=== PATIENT | male | born 1990 | race Caucasian/White ===

== ENCOUNTER 2020-04-09 19:28 | Inpatient (IN) | payer OTHER, SELFPAY ==
[2020-04-09 20:29] LABS: #Lymphocytes 1.6 thou/uL (1.20-3.40); #Monocytes 0.5 thou/uL (0.11-0.59); #Neutrophils 3.6 thou/uL (1.40-6.50); %Basophils 0.4 % (0.0-1.0); %Eosinophils 0.2 % (0.0-10.0); %Monocytes 9.2 % (0.0-10.0); %Neutrophils 63.1 % (42.0-75.0); Hemoglobin 16.2 g/dL (14.0-18.0); Mean Corpuscular HGB CONC 35.9 g/dL (32.0-36.0); Mean Corpuscular Hemoglobin 31.3 pg (27.0-31.0); Mean Corpuscular Volume 87.3 fL (78.0-98.0); Mean Platelet Volume 7.2 fL (7.4-10.4); Platelet Count 107 thou/uL (130-400); RBC Distribution Width 12.3 % (11.5-14.5); Red Blood Cell (RBC) Count 5.17 mill/uL (4.70-6.10); White Blood Cell (WBC) Count 5.7 thou/uL (4.8-10.8)
[2020-04-09 20:43] LABS: Platelet Morphology Comment Appears Decreased; RBC Morphology Normal
[2020-04-09] MEDS ORDERED: Lorazepam 2 MG/ML VIAL ONE (20:48)
[2020-04-09 20:53] LABS: ALT (SGPT) 43 U/L (8-55); AST (SGOT) 114 U/L (5-34); Albumin 4.3 g/dL (3.5-5.0); Alkaline Phosphatase 91 U/L (40-110); Anion Gap 15 mmol/L (10-20); BUN (Urea Nitrogen) 5 mg/dL (8.9-20.6); Bilirubin, Total 1.1 mg/dL (0.2-1.2); Calc. Creatinine Clearance 0 mL/min (70-130); Calcium 8.3 mg/dL (7.8-10.44); Carbon Dioxide 27 mmol/L (22-29); Chloride 97 mmol/L (98-107); Estimated GFR-MDRD 84; Glucose 124 mg/dL (70-105); Potassium 3.3 mmol/L (3.5-5.1); Protein, Total 7.3 g/dL (6.0-8.3); Sodium 136 mmol/L (136-145)
[2020-04-09 22:23] VITALS: BMI 24.2
[2020-04-09] MEDS ORDERED: Mag-Al 1200 mg/1200 mg/30 ML UDCUP PO PRN (22:51)
[2020-04-09] MEDS ORDERED: Diazepam 5 MG TAB PO PRN (23:03)
[2020-04-09] MEDS ORDERED: Diazepam 5 MG TAB PO SCH (23:15)
[2020-04-09] MEDS ORDERED: Thiamine HCl 200 MG/2 ML VIAL IM SCH (23:30)
--- NOTE | 2020-04-10 01:19 | HP ---
TIME OF ASSESSMENT: 2299 CHIEF COMPLAINT: Recent binge drinking and worry for alcohol withdrawal seizure. HISTORY OF PRESENT ILLNESS: Mr. Trejo is a 30-year-old gentleman, with a history of heavy alcohol abuse, who states he began drinking after losing his job in November due to closures associated with COVID-19. The patient states he began drinking liquor quite heavily and would often binge drink and on one occasion after decreasing the amount of alcohol he was drinking, he experienced a seizure. He states this was the first time it ever happened. He stopped drinking for approximately one month, but is unsure how long ago exactly. He has started drinking more in the last 2 to 3 weeks. He states he has tried to stay away from liquor, mainly drinking beer or sometimes wine. More recently, he started drinking liquor again. Yesterday, he had a bottle of wine. Today, he last drank before 2:00 p.m. and reports having a beer and a couple of mixed drinks (Red Bull with vodka). Patient states he is concerned about recent decline in the amount of alcohol he has been drinking with occasional binge drinking in the last week. He feels this may lead to him experiencing another seizure associated with alcohol withdrawal. He denies any tremors or shaking. Reports having hiccups this evening and denies any vomiting. Reports having issues with reflux. Has not had any hematemesis. No abdominal pain. EMERGENCY DEPARTMENT COURSE: In the emergency department, he had laboratory studies done showing a white count of 5.7, hemoglobin 16.2, platelets 107, and neutrophils 63.1%. CMP notable for potassium 3.3. His BUN was 5, creatinine 1.05, GFR 84. Glucose 124. AST 114. Otherwise, LFTs unremarkable. EKG done in the emergency department was notable for sinus tachycardia with a heart rate of 117. He was given 1 L of normal saline and 2 mg of Ativan in the emergency department. Patient states he is currently feeling much better and less anxious than he did when he first came in. He states he feels as if he could actually get rest. PAST MEDICAL HISTORY: History of alcohol withdrawal seizure. PAST SURGICAL HISTORY: None. FAMILY HISTORY: Noncontributory. SOCIAL HISTORY: Patient lives alone. Denies any tobacco use or illicit drug use. Alcohol, excess as mentioned above. Patient states there is no specific amount or type of alcohol he drinks and states that his consumption tends to fluctuate greatly from day-to-day with several days of reported binge drinking in the last 2 to 3 weeks. ALLERGIES: NO KNOWN DRUG ALLERGIES. CURRENT MEDICATIONS: Omeprazole. PHYSICAL EXAMINATION: GENERAL: Patient appears well developed, resting comfortably in bed and in no acute distress. VITAL SIGNS: . HEENT: Normocephalic and atraumatic. Pupils are equal, round, and reactive to light. Sclerae icterus. Oropharynx is clear. NECK: Supple. LUNGS: Clear to auscultation bilaterally without any wheezes, rales, or rhonchi. CARDIAC: Regular rate and rhythm. ABDOMEN: Soft, nontender, and nondistended. Normoactive bowel sounds present. No guarding or rigidity. No renal angle tenderness. EXTREMITIES: No lower leg swelling or edema. NEUROLOGIC: Alert and oriented x3. SKIN: Warm and dry. INVESTIGATIONS: As mentioned above in HPI. IMPRESSION AND PLAN: Mr. Trejo is a 30-year-old gentleman, with a history of heavy alcohol consumption who drank excessively in the past with frequent binge drinking and episode of alcohol withdrawal-induced seizure after stopping alcohol abruptly. The patient states he does not drink nearly as much as he used to, but being that his alcohol consumption has started to increase gradually again, he is worried now that he has stopped drinking today, he will experience another seizure. Patient states he was very anxious and worried about it and that is the reason why he decided to come into the emergency department in order to be monitored for possibility of recurrent seizure. He has not experienced any tremors or sweats. He is no longer tachycardic. He did receive fluids in the emergency department as well as Ativan. We will continue cardiac monitoring given tachycardia. Patient was found resting comfortably. His potassium was low in the emergency department and we will replace and check magnesium as well. He does have reflux, for which he takes omeprazole. We will resume PPI. Patient has a full code status. Case was discussed with attending, who agrees with the plan of care as described above. Job ID: [id number]
[2020-04-10 06:28] LABS: Amphetamine Not Detected (NotDetected); Benzodiazepine Screen Detected (NotDetected); Cocaine Metabolite Screen Not Detected (NotDetected); Medtox Reader # READER 4; Methamphetamine Not Detected (NotDetected); Opiate Screen Not Detected (NotDetected); Phencyclidine (PCP) Not Detected (NotDetected); THC/Cannabinoid Screen Not Detected (NotDetected)
[2020-04-10 06:29] LABS: Barbiturates Screen Not Detected (NotDetected); Medtox Control Line Valid? VALID (VALID); Methadone Not Detected (NotDetected); Oxycodone Screen Not Detected (NotDetected); Tricyclic Screen Not Detected (NotDetected)
[2020-04-10] MEDS: Folic Acid 1 MG TAB PO SCH (07:47)
[2020-04-10] MEDS: Multivitamin W/ Minerals 1 TAB PO SCH (07:47)
[2020-04-10] MEDS: Magnesium Oxide 400 MG TAB PO SCH (07:48)
[2020-04-10] MEDS: Thiamine 100 MG TAB PO SCH (07:48)
[2020-04-10] MEDS: Diazepam 5 MG TAB PO PRN ×4 (07:49→20:28)
[2020-04-10] MEDS: Lorazepam 1 MG TAB PO PRN (10:00)
[2020-04-10 12:00] LABS: SARS-CoV-2 MS2 Positive; SARS-CoV-2 N Gene Positive; SARS-CoV-2 S Gene Positive; SARS-CoV-2 by NAA DETECTED (NotDetected); SARS-CoV-2 orf1ab Positive
[2020-04-10] MEDS: Multivitamins, Adult 10 ML, Folic Acid 1 MG, Thiamine HCl 100 MG in Dextrose 5 %-0.45 %... IV SCH (13:24)
--- NOTE | 2020-04-10 13:36 | PDOC.HOSPP ---
- Subjective Encounter Date: 04/10/20 Encounter Time: 09:00 Subjective: is shaking and very anxious says his family is trying to get him to a rehab he has been having issues with alchol abuse from last 3 yrs - Objective Vital Signs & Weight: Vital Signs (12 hours) Temp Pulse Resp BP BP Pulse Ox 04/10/20 11:24 98.9 F 106 H 20 185/101 H 185/101 H 99 04/10/20 07:44 158/101 H 04/10/20 07:38 98.9 F 106 H 24 H 158/101 H 98 Weight Weight 173 lb 9.6 oz I&O: 04/09/20 04/10/20 04/11/20 06:59 06:59 06:59 Intake Total 240 Balance 240 Result Diagrams: 04/09/20 20:09 04/09/20 20:09 Hospitalist ROS - Medication Medications: Active Medications Generic Name Dose Route Start Last Admin Trade Name Freq PRN Reason Stop Dose Admin Diazepam 5 mg 04/10/20 04:00 04/10/20 11:30 Valium PO 5 mg Q4H PRN Administration FOR ASE 10 OR GREATER Folic Acid 1 mg 04/10/20 09:00 04/10/20 07:47 Folvite PO 1 mg DAILY LISET Administration Multivitamins 10 ml/ Folic 1,011.2 mls @ 70 mls/hr 04/10/20 12:24 04/10/20 13 :24 Acid 1 mg/ Thiamine HCl 100 mg IV 1,011.2 mls / Dextrose/Sodium Chloride Q24HR LISET Administration Iron/Minerals/Multivitamins 1 tab 04/10/20 09:00 04/10/20 07:47 Theragran M PO 1 tab DAILY LISET Administration Lorazepam 2 mg 04/10/20 00:25 04/10/20 10:00 Ativan PO 2 mg Q4H PRN Administration Anxiety/Agitation Magnesium Oxide 400 mg 04/10/20 09:00 04/10/20 07:48 Magnesium Oxide PO 400 mg DAILY LISET Administration Thiamine HCl 100 mg 04/10/20 09:00 04/10/20 07:48 Thiamine PO 100 mg DAILY LISET Administration - Exam General Appearance: awake alert Eye: anicteric sclera ENT: no oropharyngeal lesions, dry oral mucosa Neck: supple, no JVD Heart: RRR, no murmur Respiratory: no wheezes, no rales Gastrointestinal: soft, non-tender, non-distended, normal bowel sounds Extremities: no cyanosis, no edema Neurological: cranial nerve grossly intact, no focal deficits Hosp A/P (1) Alcohol abuse Code(s): F10.10 - ALCOHOL ABUSE, UNCOMPLICATED Status: Acute (2) Alcohol withdrawal Code(s): F10.239 - ALCOHOL DEPENDENCE WITH WITHDRAWAL, UNSPECIFIED Status: Acute - Plan is on ASE protocol banana bag I have reassured him we will watch him closely hemostable will need 2 more days to settle down with withdrawal symptoms tx to medical floor
[2020-04-11] MEDS: Lorazepam 1 MG TAB PO PRN (00:02)
[2020-04-11] MEDS ORDERED: Morphine 2 MG/ML VIAL SLOW IVP SCH (00:30)
[2020-04-11] MEDS ORDERED: Lidocaine 2% Viscous Solution 10 ML, Aluminum & Magnesium Hydroxide 30 ML SSW SCH (00:30)
[2020-04-11 00:44] LABS: #Basophils 0.1 thou/uL (0.0-0.2); #Lymphocytes 1.9 thou/uL (1.20-3.40); #Monocytes 0.7 thou/uL (0.11-0.59); #Neutrophils 9.7 thou/uL (1.40-6.50); %Basophils 0.5 % (0.0-1.0); %Eosinophils 0.2 % (0.0-10.0); %Lymphocytes 15.6 % (21.0-51.0); %Monocytes 5.4 % (0.0-10.0); %Neutrophils 78.2 % (42.0-75.0); Hemoglobin 16.3 g/dL (14.0-18.0); Mean Corpuscular HGB CONC 34.1 g/dL (32.0-36.0); Mean Corpuscular Hemoglobin 30.2 pg (27.0-31.0); Mean Corpuscular Volume 88.5 fL (78.0-98.0); Mean Platelet Volume 7.8 fL (7.4-10.4); Platelet Count 101 thou/uL (130-400); RBC Distribution Width 12.1 % (11.5-14.5); White Blood Cell (WBC) Count 12.4 thou/uL (4.8-10.8)
--- NOTE | 2020-04-11 00:55 | PDOC.EVN ---
Event Note - Event Note Event Note: Patient with semi-soft stools x 2 today with abdominal cramping.Feels he is not tolerating food well. States its happened in the past while he was in the hospital. Denies any vomiting. Has not had any distention. No passing excess flatus. No melena or bright red blood per rectum. Denies any fevers. He has been sweating profusely and was doubled over in pain but now it has eased. Requesting peptobismol. He declined examination, states he prefers to be left alone while he is attempting to use the bathroom. Feels like he needs to have a bowel movement. Will give GI cocktail and Levsin. If starts to have watery stools will need stool studies. ADDENDUM: Labs obtained demonstrate elevated lipase 7k, and bili 2.2. Lactic acid 2.3 We started IV fluids. RUQ ultrasound ordered. K+ replacement ordered. Regular diet discontinued, will keep NPO until imaging done.
[2020-04-11 00:58] LABS: Lactic Acid 2.3 mmol/L (0.5-2.2)
[2020-04-11] MEDS ORDERED: Pantoprazole 40 MG VIAL IVP SCH (01:00)
[2020-04-11] MEDS ORDERED: Famotidine 20 MG TAB PO SCH (01:00)
[2020-04-11 01:09] LABS: ALT (SGPT) 39 U/L (8-55); AST (SGOT) 95 U/L (5-34); Albumin 4.7 g/dL (3.5-5.0); Alkaline Phosphatase 102 U/L (40-110); Anion Gap 17 mmol/L (10-20); BUN (Urea Nitrogen) 5 mg/dL (8.9-20.6); Bilirubin, Total 2.2 mg/dL (0.2-1.2); Calc. Creatinine Clearance 122 mL/min (70-130); Calcium 9.6 mg/dL (7.8-10.44); Carbon Dioxide 24 mmol/L (22-29); Chloride 93 mmol/L (98-107); Estimated GFR-MDRD 89; Globulin 3.2 g/dL (2.4-3.5); Glucose 192 mg/dL (70-105); Protein, Total 7.9 g/dL (6.0-8.3); Sodium 131 mmol/L (136-145)
[2020-04-11 01:17] LABS: Lipase 7061 U/L (8-78)
[2020-04-11] MEDS: Diazepam 5 MG TAB PO PRN (01:20)
[2020-04-11] MEDS ORDERED: Sodium Chloride 0.9% 1,000 ML IV SCH ×2 (01:45→07:48)
[2020-04-11] MEDS ORDERED: Potassium Chloride 20 MEQ TAB PO SCH (01:45)
[2020-04-11] MEDS ORDERED: Electrolyte Replacement Protocol FS SCH (01:45)
--- NOTE | 2020-04-11 07:36 | ULT ---
PRELIMINARY REPORT/[facility]/EMERGENCY AFTER HOURS PROCEDURE: EXAM: US Abdomen Limited, Right Upper Quadrant. CLINICAL HISTORY: Abd cramping pain TECHNIQUE: Real-time ultrasound of the right upper quadrant with image documentation. COMPARISON: None provided. FINDINGS: LIVER: Appears enlarged at 18.1 cm and demonstrates fatty infiltration. GALLBLADDER: No gallstone. No wall thickening. No pericholecystic fluid. Appears distended COMMON BILE DUCT: No dilation. Measures 4.6 mm PANCREAS: Obscured by overlying bowel gas. RIGHT KIDNEY: Unremarkable. No hydronephrosis. Measures 10.0 cm IMPRESSION: Enlarged fatty infiltrated liver ELECTRONICALLY SIGNED BY: Wilmer Reyes MD Apr 11, 2020 3:24:50 AM CDT This report is intended for review by the ordering physician only, in accordance of law. If you recei ve this report in error, please call [facility] at [phone]. FINAL REPORT EMERGENCY AFTER HOURS RIGHT UPPER QUADRANT ABDOMINAL ULTRASOUND: FINDINGS/IMPRESSION: I agree with the findings and impression given in the preliminary report per [facility] vinny hernández Fatty liver. POS: KARAN
[2020-04-11] MEDS: Magnesium Oxide 400 MG TAB PO SCH (09:13)
[2020-04-11] MEDS: Multivitamin W/ Minerals 1 TAB PO SCH (09:13)
[2020-04-11] MEDS: Thiamine 100 MG TAB PO SCH (09:13)
[2020-04-11] MEDS: Famotidine 20 MG TAB PO SCH ×2 (09:13→20:55)
[2020-04-11] MEDS: Folic Acid 1 MG TAB PO SCH (09:14)
[2020-04-11] MEDS ORDERED: Iopamidol-370 76% 500 ML 1 ML ONE (11:13)
--- NOTE | 2020-04-11 11:55 | CT ---
CT abdomen and pelvis with IV and oral contrast HISTORY: Abdominal pain. Pancreatitis. FINDINGS: Lung bases are clear. Liver is diffusely hypodense. Subtle stranding within the fat around the pancreas, most pronounced at the pancreatic head. Small am ount of adjacent fluid, extending into the right paracolic gutter in the dependent portion of the pelvis. There is subtle circumferential wall thickening involving the hepatic flexure of the colon. Appendix not well visualized. Possibly surgically absent? Other solid organs of the abdomen are within normal limits. Urinary bladder decompressed. Mild forestry aid ior disc bulge at the lumbosacral junction. IMPRESSION : CT findings of non-complicated pancreatitis. Secondary inflammation of the hepatic flexure of the col on.
--- NOTE | 2020-04-11 12:55 | PDOC.HOSPP ---
- Subjective Encounter Date: 04/11/20 Encounter Time: 08:45 Subjective: no nausea or abd pain this am feels better, had abd pain and nausea last evening - Objective Vital Signs & Weight: Vital Signs (12 hours) Temp Pulse Resp BP BP Pulse Ox 04/11/20 09:20 97.8 F 103 H 20 131/78 98 04/11/20 05:00 98.7 F 92 18 138/77 138/77 98 Weight Weight 173 lb 9.6 oz I&O: 04/10/20 04/11/20 04/12/20 06:59 06:59 06:59 Intake Total 240 1750 Balance 240 1750 Result Diagrams: 04/11/20 00:34 04/11/20 00:34 Hospitalist ROS - Medication Medications: Active Medications Generic Name Dose Route Start Last Admin Trade Name Freq PRN Reason Stop Dose Admin Al Hydroxide/Mg Hydroxide 30 ml 04/09/20 22:51 04/10/20 20:37 Maalox PO 30 ml Q6H PRN Administration Dyspepsia Diazepam 5 mg 04/10/20 04:00 04/11/20 01:20 Valium PO 5 mg Q4H PRN Administration FOR ASE 10 OR GREATER Famotidine 20 mg 04/11/20 09:00 04/11/20 09:13 Pepcid PO 20 mg BID LISET Administration Folic Acid 1 mg 04/10/20 09:00 04/11/20 09:14 Folvite PO 1 mg DAILY LISET Administration Multivitamins 10 ml/ Folic 1,011.2 mls @ 70 mls/hr 04/10/20 12:24 04/10/20 13 :24 Acid 1 mg/ Thiamine HCl 100 mg IV 1,011.2 mls / Dextrose/Sodium Chloride Q24HR LISET Administration Iron/Minerals/Multivitamins 1 tab 04/10/20 09:00 04/11/20 09:13 Theragran M PO 1 tab DAILY LISET Administration Lorazepam 2 mg 04/10/20 00:25 04/11/20 00:02 Ativan PO 2 mg Q4H PRN Administration Anxiety/Agitation Magnesium Oxide 400 mg 04/10/20 09:00 04/11/20 09:13 Magnesium Oxide PO 400 mg DAILY LISET Administration Thiamine HCl 100 mg 04/10/20 09:00 04/11/20 09:13 Thiamine PO 100 mg DAILY LISET Administration - Exam General Appearance: awake alert Eye: PERRL, anicteric sclera ENT: no oropharyngeal lesions, dry oral mucosa Neck: supple, no JVD Heart: RRR, no murmur Respiratory: no wheezes, no rales Gastrointestinal: soft, non-distended, normal bowel sounds, no guarding, no rigidity Extremities: no cyanosis, no edema Neurological: cranial nerve grossly intact, no focal deficits Psychiatric: normal affect, A&O x 3 Hosp A/P (1) Acute pancreatitis Code(s): K85.90 - ACUTE PANCREATITIS WITHOUT NECROSIS OR INFECTION, UNSP Status: Acute Qualifiers: Pancreatitis type: alcohol induced (2) Alcohol abuse Code(s): F10.10 - ALCOHOL ABUSE, UNCOMPLICATED Status: Acute (3) Alcohol withdrawal Code(s): F10.239 - ALCOHOL DEPENDENCE WITH WITHDRAWAL, UNSPECIFIED Status: Acute (4) COVID-19 virus infection Code(s): U07.1 - COVID-19 Status: Acute - Plan is on ASE protocol generous iv fluids with pancreatitis hemostable withdrawal symptoms are better this am with no chills/shaking or anxiety issues. to ambulate in room has covid 19+ve, no sob and is not on oxygen
--- NOTE | 2020-04-11 13:19 | CON ---
DATE OF CONSULTATION: 04/11/2020 REQUESTING PHYSICIAN: Wilian Nair MD REASON FOR CONSULTATION: Pancreatitis and alcohol abuse. HISTORY OF PRESENT ILLNESS: Da Trejo is a 30-year-old man, who was admitted to the hospital a couple of nights ago. He has no chronic gastrointestinal symptoms. He has no prior history of pancreatic, liver, or biliary disease. He reports he has used alcohol quite heavily for few years and especially over the past several months. He presented to the emergency department a couple of nights ago with feelings of anxiety and shakiness with concern that he might have a withdrawal seizure. He has had a prior episode of alcohol withdrawal seizure. He was admitted for alcohol withdrawal monitoring and management. Upon presentation, he was not having any abdominal pain. He had a few episodes of vomiting, which he was attributing to withdrawal symptoms. However, yesterday evening, he started having severe cramping pain. He describes this was in the mid to lower abdomen. It was associated with feeling of constipation and needing to evacuate his bowels. Some labs were checked and lipase came back at 7061, so he had a CT scan of the abdomen and pelvis earlier today and this does show peripancreatic stranding without any complications. Some reactive thickening at the hepatic flexure. The patient actually states this morning he is doing very well, that cramping abdominal pain has resolved. He is no longer having any nausea or vomiting. He has been n.p.o. today. IV fluids were ordered for 200 mL/h, but once the current bag ran out, the patient disconnected the IV. I do note that his hematocrit went up slightly from 45 to 47 over his first day of hospitalization. Also notably his COVID PCR is positive, but he is not experiencing any symptoms of shortness of breath, cough, or fever. PAST MEDICAL HISTORY: Alcohol abuse, alcohol withdrawal seizure. ALLERGIES: NO KNOWN DRUG ALLERGIES. MEDICATIONS: Outpatient medications: Omeprazole. Inpatient medications: 1. Pepcid 20 mg b.i.d. 2. Folic acid 1 mg daily. 3. Ativan p.r.n. 4. Magnesium oxide 400 mg p.o. daily. 5. Multivitamin with minerals. 6. Thiamine. 7. Morphine p.r.n. was given last night. 8. IV normal saline 200 mL/h. FAMILY HISTORY: Noncontributory. SOCIAL HISTORY: No tobacco or drug abuse noted, though urine was positive for benzodiazepines. He admits to alcohol abuse. PHYSICAL EXAMINATION: VITAL SIGNS: Temperature 98.7, pulse 103, blood pressure 131/78, oxygen saturation 98% on room air. GENERAL: A 30-year-old man, lying in bed comfortably, in no distress. MENTAL: Alert and fully oriented. Pleasant, conversational. SKIN: No jaundice. No rashes were palpable. EYES: No scleral icterus. Extraocular movements intact. ENT: Mucous membranes moist. No oral lesions. LYMPH: No submandibular or supraclavicular lymphadenopathy. THYROID: Nontender to palpation. HEART: Regular rate and rhythm. LUNGS: Clear to auscultation bilaterally. ABDOMEN: Mild distention, tympanitic to percussion. Soft, nontender to palpation. Bowel sounds are hypoactive, but present. EXTREMITIES: No peripheral edema. VESSELS: Radial pulses 2+ bilaterally. NEURO: Cranial nerves II through XII intact bilaterally. No focal deficits. LABORATORY STUDIES: Lipase elevated to 7061. Total bilirubin initially 1.1, up to 2.2 now, alkaline phosphatase 102, AST 95, ALT 39, albumin 4.7, BUN 5, creatinine 1.00, sodium 131, and potassium 3.0. COVID PCR positive. Lactic acid 2.3. Urine positive for benzodiazepines. WBC initially 5.7, but went up to 12.4; hemoglobin initially 16.2, now 16.3; hematocrit initially 45, now 47; and platelets 101. IMAGING STUDIES: CT of the abdomen and pelvis demonstrates peripancreatic stranding with no evidence of complication. There is some reactive thickening at the hepatic flexure. Abdominal ultrasound shows fatty liver, normal-appearing gallbladder with no gallbladder wall thickening or pericholecystic fluid or gallstones. Common bile duct is normal at 4.6 mm. ASSESSMENT AND PLAN: 1. Acute alcoholic pancreatitis. 2. Alcohol withdrawal. This appears to be the patient's first episode of pancreatitis. On the positive side, his symptoms have much improved this morning and he is not endorsing any further abdominal pain or nausea. On the other hand, over the first 24 hours of admission, his hematocrit went up from 45 to 47, and he also developed leukocytosis. I emphasized the importance of aggressive IV fluid administration to the patient. I would agree with 200 mL/h and advised the patient not to disconnect the line. I would advise continued n.p.o. status for the remainder of the day. Continue with other supportive care as needed, though again the patient seems to be doing better from a symptomatic perspective. If he is continuing to do well tomorrow and laboratory studies are favorable and he is hungry, could possibly try to advance to clear liquids tomorrow morning. In the longer term, I advised the patient he needs to completely avoid all alcohol going forward. 3. COVID PCR positive. The patient does not really have classic symptoms of COVID. Infectious Disease has been consulted. The patient remains on COVID precautions. GI will follow along. Thank you for the consultation. Job ID: [id number]
[2020-04-11] MEDS: Sodium Chloride 0.9% 1,000 ML IV SCH ×3 (13:20→21:29)
[2020-04-11] MEDS: Multivitamins, Adult 10 ML, Folic Acid 1 MG, Thiamine HCl 100 MG in Dextrose 5 %-0.45 %... IV SCH (13:41)
--- NOTE | 2020-04-11 17:52 | CON ---
DATE OF CONSULTATION: 04/11/2020 REASON FOR CONSULTATION: Pancreatitis associated with positive COVID serology. HISTORY OF PRESENT ILLNESS: A 30-year-old with history of alcoholism, who came in with some nausea and what he describes as abdominal cramps, but he does not qualify the symptom as pain. The main reason that he came to the hospital is because he was wanting to quit drinking and he was afraid that he was going to have recurrence of seizures, so he came in. He was admitted and tested positive for COVID in the process and he had a very higher level of lipase with CT scan findings consistent with uncomplicated pancreatitis. Right now, he is having what he describes as abdominal cramps, those are localized throughout the abdomen, probably related to the enzymatic release from the pancreas. Denies any headaches. No visual symptoms, sore throat, odynophagia, or dysphagia. No chest pain. No diarrhea. No genitourinary symptoms. Does not have any cough again. No dyspnea. PAST MEDICAL HISTORY: 1. Alcoholism. 2. Seizures, which were associated with binge drinking. 3. Prior DTs. 4. Never smoker. ALLERGIES: NONE. MEDICATION LIST: 1. Lorazepam. 2. Diazepam. 3. Magnesium oxide. 4. Electrolyte replacement. 5. Multivitamins. 6. Thiamine. FAMILY HISTORY: Noncontributory. PHYSICAL EXAMINATION: VITAL SIGNS: He has been afebrile, BP 118/63, pulse 82, respirations 16, and O2 saturation 97. SKIN: Normal. No lymphadenopathy. HEENT: Ocular movements conjugate. Sclerae white. Pupils are equal. Oral cavity normal. LUNGS: Symmetric, clear breath sounds. HEART: S1 and S2. Regular rate. No S3 or S4. ABDOMEN: Somewhat taut with moderate distention and diffuse tenderness, which is mild. No bladder distention. GENITAL: No genital abnormalities. EXTREMITIES: No joint inflammatory activity. No edema. Pulses 1+ in dorsalis pedis. Moves extremities equally. NEUROLOGIC: He is awake, oriented, little jittery during the examination and kind of shaking. LABORATORY DATA: His white cell count 5.7 and 12.4, hemoglobin 16, platelets 101,000, and 78% neutrophils. Sodium 131, creatinine 1.0, glucose 192, bilirubin 2.2, AST 95, and lipase 7000. COVID serology positive. His abdomen and pelvis CT with CT findings an uncomplicated pancreatitis, secondary inflammation of hepatic flexure of the colon. The lungs did not show any abnormalities. ASSESSMENT: 1. Pancreatitis due to alcoholism. 2. Delirium tremens. 3. COVID positive serology. DISCUSSION: He does not have respiratory symptoms and the segment of lungs that were imaged by the CT did not have any evidence of infiltrates. This seems to be a mild COVID infection. His main issue is the alcohol withdrawal symptoms, risk of seizures, and pancreatitis. He is not eligible or requires any treatment for the COVID infection at the moment. He is around the 7th day of illness more or less. He seems to have acquired the infection in [place] when he was around a lot of people who were not wearing masks in the common area of the [facility]. Job ID: [id number]
[2020-04-12] MEDS: Lorazepam 1 MG TAB PO PRN (00:25)
[2020-04-12] MEDS: Sodium Chloride 0.9% 1,000 ML IV SCH ×5 (03:30→23:50)
[2020-04-12 07:30] LABS: ALT (SGPT) 21 U/L (8-55); AST (SGOT) 46 U/L (5-34); Albumin 3.7 g/dL (3.5-5.0); Alkaline Phosphatase 85 U/L (40-110); Anion Gap 13 mmol/L (10-20); BUN (Urea Nitrogen) Less than 4 mg/dL (8.9-20.6); Bilirubin, Total 1.6 mg/dL (0.2-1.2); Calc. Creatinine Clearance 163 mL/min (70-130); Calcium 8.8 mg/dL (7.8-10.44); Carbon Dioxide 24 mmol/L (22-29); Chloride 99 mmol/L (98-107); Estimated GFR-MDRD Greater than 90; Globulin 2.9 g/dL (2.4-3.5); Glucose 95 mg/dL (70-105); Potassium 3.4 mmol/L (3.5-5.1); Protein, Total 6.6 g/dL (6.0-8.3); Sodium 133 mmol/L (136-145)
[2020-04-12 07:44] LABS: Lipase 1186 U/L (8-78)
[2020-04-12 07:54] LABS: #Basophils 0.1 thou/uL (0.0-0.2); #Lymphocytes 0.9 thou/uL (1.20-3.40); #Monocytes 0.5 thou/uL (0.11-0.59); #Neutrophils 7.9 thou/uL (1.40-6.50); %Basophils 0.8 % (0.0-1.0); %Eosinophils 0.3 % (0.0-10.0); %Lymphocytes 9.5 % (21.0-51.0); %Neutrophils 84.4 % (42.0-75.0); Hemoglobin 13.4 g/dL (14.0-18.0); Mean Corpuscular HGB CONC 33.9 g/dL (32.0-36.0); Mean Corpuscular Hemoglobin 30.3 pg (27.0-31.0); Mean Corpuscular Volume 89.3 fL (78.0-98.0); Mean Platelet Volume 8.3 fL (7.4-10.4); Platelet Count 56 thou/uL (130-400); Platelet Morphology Comment Appears Decreased; RBC Distribution Width 11.9 % (11.5-14.5); RBC Morphology Normal; Red Blood Cell (RBC) Count 4.42 mill/uL (4.70-6.10); White Blood Cell (WBC) Count 9.4 thou/uL (4.8-10.8)
[2020-04-12] MEDS: Famotidine 20 MG TAB PO SCH ×2 (08:09→21:44)
[2020-04-12] MEDS: Multivitamin W/ Minerals 1 TAB PO SCH (08:09)
[2020-04-12] MEDS: Thiamine 100 MG TAB PO SCH (08:09)
[2020-04-12] MEDS: Folic Acid 1 MG TAB PO SCH (08:09)
[2020-04-12] MEDS: Magnesium Oxide 400 MG TAB PO SCH (08:09)
--- NOTE | 2020-04-12 10:26 | PRG ---
DATE OF SERVICE: 04/12/2020 SUBJECTIVE: The patient is feeling pretty good today. He has not had recurrence of abdominal discomfort. He is not having any nausea or vomiting. His appetite has returned. He has been slightly tachycardic, spiked a mild temperature to 99.7 early this morning. OBJECTIVE: VITAL SIGNS: Temperature 99.4, pulse 115, blood pressure 150/96, and 99% oxygen saturation on room air. GENERAL: No acute distress, lying in bed comfortably. HEART: Regular. Tachycardia. LUNGS: Clear to auscultation bilaterally. ABDOMEN: Flat. Bowel sounds are present. Soft, nontender to palpation. EXTREMITIES: No peripheral edema. LABORATORY STUDIES: All improved with WBC 9.4, hemoglobin 13.4, hematocrit down to 39.5 from 47.8 yesterday. Sodium 133, potassium 3.4, BUN less than 4, creatinine 0.75, total bilirubin 1.6, alkaline phosphatase 85, AST down to 46, ALT down to 21, lipase down from 7061 to 1186. ASSESSMENT AND PLAN: Acute alcoholic pancreatitis, first episode, clinically improved. He has characteristic CT findings and lipase elevation, all consistent with acute alcoholic pancreatitis. Symptoms have improved significantly. With aggressive fluid resuscitation yesterday, I have also seen favorable laboratory trends. We will go ahead and give him a clear liquid diet this morning. I think this afternoon if he is tolerating the clear liquids well, then his diet could be further advanced, and IV fluids could be backed off a bit. I again advised the patient that he needs to completely avoid all alcohol going forward to try to minimize the risk of recurrence. Please call anytime with questions or concerns. Job ID: [id number]
[2020-04-12] MEDS: Multivitamins, Adult 10 ML, Folic Acid 1 MG, Thiamine HCl 100 MG in Dextrose 5 %-0.45 %... IV SCH (12:31)
[2020-04-12 13:15] LABS: MDiff Complete? YES
--- NOTE | 2020-04-12 14:12 | PDOC.HOSPP ---
- Subjective Encounter Date: 04/12/20 Encounter Time: 12:00 Subjective: no abd pain or nausea wants to go home is amb in room no chills/shakes or anxiety attacks - Objective Vital Signs & Weight: Vital Signs (12 hours) Temp Pulse Resp BP BP Pulse Ox 04/12/20 13:01 99.1 F 115 H 20 167/111 H 96 04/12/20 08:15 99.4 F 115 H 18 150/96 H 99 04/12/20 08:10 99 04/12/20 04:00 99.7 F H 108 H 20 144/74 H 144/74 H Weight Weight 173 lb 9.6 oz I&O: 04/11/20 04/12/20 04/13/20 06:59 06:59 06:59 Intake Total 1750 1500 900 Balance 1750 1500 900 Result Diagrams: 04/12/20 06:28 04/12/20 06:28 Hospitalist ROS - Medication Medications: Active Medications Generic Name Dose Route Start Last Admin Trade Name Freq PRN Reason Stop Dose Admin Al Hydroxide/Mg Hydroxide 30 ml 04/09/20 22:51 04/10/20 20:37 Maalox PO 30 ml Q6H PRN Administration Dyspepsia Diazepam 5 mg 04/10/20 04:00 04/11/20 01:20 Valium PO 5 mg Q4H PRN Administration FOR ASE 10 OR GREATER Famotidine 20 mg 04/11/20 09:00 04/12/20 08:09 Pepcid PO 20 mg BID LISET Administration Folic Acid 1 mg 04/10/20 09:00 04/12/20 08:09 Folvite PO 1 mg DAILY LISET Administration Multivitamins 10 ml/ Folic 1,011.2 mls @ 70 mls/hr 04/10/20 12:24 04/12/20 12 :31 Acid 1 mg/ Thiamine HCl 100 mg IV 1,011.2 mls / Dextrose/Sodium Chloride Q24HR LISET Administration Sodium Chloride 1,000 mls @ 200 mls/hr 04/11/20 12:45 04/12/20 12:46 Normal Saline 0.9% IV Not Given .Q5H LISET Iron/Minerals/Multivitamins 1 tab 04/10/20 09:00 04/12/20 08:09 Theragran M PO 1 tab DAILY LISET Administration Lorazepam 2 mg 04/10/20 00:25 04/12/20 00:25 Ativan PO 2 mg Q4H PRN Administration Anxiety/Agitation Magnesium Oxide 400 mg 04/10/20 09:00 04/12/20 08:09 Magnesium Oxide PO 400 mg DAILY LISET Administration Thiamine HCl 100 mg 04/10/20 09:00 04/12/20 08:09 Thiamine PO 100 mg DAILY LISET Administration - Exam General Appearance: awake alert Eye: PERRL, anicteric sclera ENT: no oropharyngeal lesions, dry oral mucosa Neck: supple, no JVD Heart: RRR, no murmur Respiratory: no wheezes, no rales Gastrointestinal: soft, non-tender, non-distended, normal bowel sounds, no guarding, no rigidity Extremities: no cyanosis, no edema Neurological: cranial nerve grossly intact, no focal deficits Psychiatric: normal affect, A&O x 3 Hosp A/P (1) Acute pancreatitis Code(s): K85.90 - ACUTE PANCREATITIS WITHOUT NECROSIS OR INFECTION, UNSP Status: Acute Qualifiers: Pancreatitis type: alcohol induced (2) Alcohol abuse Code(s): F10.10 - ALCOHOL ABUSE, UNCOMPLICATED Status: Acute (3) Alcohol withdrawal Code(s): F10.239 - ALCOHOL DEPENDENCE WITH WITHDRAWAL, UNSPECIFIED Status: Acute (4) COVID-19 virus infection Code(s): U07.1 - COVID-19 Status: Acute - Plan is on ASE protocol generous iv fluids with pancreatitis hemostable no withdrawal symptoms including chills/shaking or anxiety issues. to ambulate in room as tolerated pancreatitis is resolving, clear liq diet, to advance as tolerated has covid 19+ve, no sob and is not on oxygen
[2020-04-13] MEDS: Sodium Chloride 0.9% 1,000 ML IV SCH ×3 (02:00→13:47)
[2020-04-13 07:45] LABS: Potassium 3.1 mmol/L (3.5-5.1)
[2020-04-13] MEDS: Thiamine 100 MG TAB PO SCH (08:21)
[2020-04-13] MEDS: Famotidine 20 MG TAB PO SCH (08:21)
[2020-04-13] MEDS: Magnesium Oxide 400 MG TAB PO SCH (08:21)
[2020-04-13] MEDS: Multivitamin W/ Minerals 1 TAB PO SCH (08:21)
[2020-04-13] MEDS: Folic Acid 1 MG TAB PO SCH (08:21)
[2020-04-13] MEDS ORDERED: Potassium Chloride 20 MEQ TAB PO SCH ×2 (10:30)
--- NOTE | 2020-04-13 10:42 | PRG ---
DATE OF SERVICE: 04/13/2020 SUBJECTIVE: Mr. Trejo says he is doing pretty well. He is feeling less anxious and jittery. He has not had any recurrence of abdominal pain or nausea. He has remained hemodynamically stable. He did spike a mild fever to 102 last night. No cough or shortness of breath. OBJECTIVE: VITAL SIGNS: Temperature 100.2, pulse 96, blood pressure 165/91, 98% oxygen saturation on room air. GENERAL: No acute distress. HEART: Regular rate and rhythm. LUNGS: Clear to auscultation bilaterally. ABDOMEN: Soft, nontender to palpation. EXTREMITIES: No peripheral edema. LABORATORY STUDIES: Potassium 3.1. No other new labs today. ASSESSMENT/PLAN: 1. Acute alcoholic pancreatitis, clinically resolved. 2. Alcohol withdrawal, symptoms improved. 3. COVID, mild infection. I will go ahead and advance his diet to a regular diet today. From a GI perspective, if he does well after lunch this afternoon, I think he could be discharged from the hospital. GI will sign off. Please call back anytime with questions or concerns. I again emphasized with the patient the importance of complete abstinence from alcohol going forward, and he expresses understanding and also willingness to completely abstain. Job ID: [id number]
[2020-04-13] MEDS: Multivitamins, Adult 10 ML, Folic Acid 1 MG, Thiamine HCl 100 MG in Dextrose 5 %-0.45 %... IV SCH (13:16)
[2020-04-13 13:49] LABS: Bacteria/HPF None Seen HPF (None Seen); Bilirubin Negative (Negative); Blood, Urine Negative (Negative); Clarity Clear (Clear); Glucose, Urine (Dipstick) Normal (Negative); Ketone, Urine Trace mg/dL (Negative); Leukocyte Negative Leu/uL (Negative); Nitrite Negative (Negative); Protein, Urine (Dipstick) Negative (Neg-Trace); RBC/HPF 0-3 HPF (0-3); Specific Gravity, Urine 1.003 (1.002-1.036); Squamous Epithelial None Seen HPF (0-3); Urobilinogen Normal mg/dL (Less than 2); WBC/HPF 0-3 HPF (0-3); pH, Urine 6.5 (5.0-9.0)
[2020-04-13 13:50] LABS: Urine Culture Reflex No No
[2020-04-13 16:33] VITALS: BP 147/94; TEMP 99
--- NOTE | 2020-04-14 00:39 | DIS ---
DATE OF ADMISSION: 04/09/2020 DATE OF DISCHARGE: 04/13/2020 DISCHARGE DIAGNOSES: 1. Acute alcoholic pancreatitis 2. Alcohol withdrawal/detoxification 3. Leukocytosis 4. Anemia 5. Hypokalemia 6. Hyponatremia 7. Transaminitis 8. Lactic acidosis 9. COVID positive. CONSULTATIONS: 1. Dr. Alvino Vergara with GI. 2. Dr. [place] River with Infectious Disease. BRIEF HISTORY OF PRESENT ILLNESS: This is a 30-year-old male with a past medical history of alcoholism, who started drinking after losing his job in November. He reported drinking quite heavily and would binge drink frequently, but was drinking up to greater than four drinks on a daily basis. He reported having alcohol withdrawal seizure in the past and came to the ER for detoxification. He also reported some issues with hiccups and reflux. When he presented to the emergency room, his labs showed an elevated AST of 114 and some mild hypokalemia of 3.3. HOSPITAL COURSE: Alcoholic pancreatitis with concern for withdrawal seizure: The patient was admitted to the hospital for observation of alcohol withdrawal seizure. He was on the Jonathon protocol and was given benzos p.r.n. On the day of discharge , he was noted to have some mild tremors on his left hand, but had not required any Ativan within a 24-hour period, therefore, he was felt to be stable for discharge. The patient states that he is going to get alcohol cessation counseling upon discharge and he has no interest in ever drinking again. Pancreatitis: The patient did report some abdominal pain and he had a CT scan of his abdomen and pelvis, which showed an uncomplicated pancreatitis. The patient was initially kept n.p.o. On the day of discharge, he ate half a burger, but reported that he had some mild abdominal pain with this that he did not want to eat more. The patient wanted to advance his diet as tolerated at home. Anemia: The patient's hemoglobin was 13.4. He was discharged with folate and thiamine supplements. Consider outpatient follow up. Hyponatremia: The patient's sodium was 133, which is improved from sodium of 131 on the . He was given IV fluids. He should get a repeat BMP in a week. Transaminitis: The patient had an AST of 114, which improved to 46 on 04/12. This is most likely secondary to alcoholism. The patient is to have repeat LFTs in a week. Hypokalemia: The patient had a potassium of 3.1 on April 13. He denied any nausea, vomiting, or diarrhea. He was advised to get a repeat potassium in a week. COVID positive: The patient was noted to be incidentally COVID positive on . His chest x-ray was normal. He denied any cough or shortness of breath. He was advised to quarantine for at least another 10 days. DISCHARGE PHYSICAL EXAMINATION: VITAL SIGNS: Temperature 99, heart rate 102, respiratory rate 14, O2 saturation 98% on room air, and blood pressure 147/94. GENERAL: The patient is alert, awake, and oriented x3. CVS: Regular rate and rhythm with no murmurs, rubs, or gallops. LUNGS: Clear to auscultation bilaterally. ABDOMEN: Positive bowel sounds. Soft, nontender, nondistended. EXTREMITIES: No edema. LABORATORY DATA: CBC 04/12: White count 9.4, hemoglobin 13.4, hematocrit 39.5, platelet count of 56. BMP 04/12: Sodium 133, potassium 3.4, chloride 99, BUN less than 4, creatinine 0.75. LFTs 04/12: AST 46, ALT 21, alkaline phosphatase 85. Lipase: 7061, which improved to 1186. Potassium 04/13: 3.1. UA 04/13: Negative. U-tox 04/10: Positive for benzos. COVID PCR 04/09: Positive. IMAGING: Abdominal ultrasound 04/11: Was normal. CT abdomen and pelvis 04/11: Showed secondary inflammation of the hepatic flexure of the colon. Uncomplicated pancreatitis. DISCHARGE CONDITION: Stable. ACTIVITY: As tolerated. DIET: Consider low-fat diet. DISCHARGE INSTRUCTIONS: The patient is to follow up with his PCP in a week. He had a repeat CBC to evaluate resolution of anemia. He has had a repeat BMP to follow up hyponatremia and hypokalemia. He should also have repeat LFTs to follow up resolution of transaminitis. DISCHARGE MEDICATIONS: New prescriptions: 1. Folic acid 1 mg p.o. daily. 2. Thiamine 100 mg p.o. daily. Continued medications: Omeprazole 40 mg p.o. daily. Job ID: [id number] [facility]
== END 2020-04-13 16:28 | disposition home or self-care (01) | DRG 438 ==
LOC: ERS 19:28 → OBSVTOIN 21:07 → INTOOBSV 21:07 → 2NO 21:07 → T4-B 04-10 18:01 → ONC 04-10 18:24
PROVIDERS: ADMIT Internal Medicine; ATTEND Internal Medicine
DX: K85.20 Alcohol induced acute pancreatitis without necrosis or infection (principal); U07.1 COVID-19; F10.239 Alcohol dependence with withdrawal, unspecified; E87.1 Hypo-osmolality and hyponatremia; E87.2 Acidosis; D64.9 Anemia, unspecified; E87.6 Hypokalemia; R74.0 Nonspecific elevation of levels of transaminase and lactic acid dehydrogenase [LDH]; R25.1 Tremor, unspecified
CPT/HCPCS: 36415; 74177; 76705; 80053; 80306; 81001; 83605; 83690; 83735; 84132; 85025; 87635; 93005; 96372; 96374; 96375; G0378; J2060; J2270; J3411; J3475; J3490; J7042; U0003